=== PATIENT | male | born 1965 | race Caucasian/White ===

== ENCOUNTER 2016-07-13 12:28 | Emergency (ER) | payer OTHER ==
[2016-07-13 12:42] VITALS: BP 124/75; PULSE 71; TEMP 97.8; BMI 34.5
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
== END 2016-07-13 14:02 | disposition home or self-care (01) ==
LOC: EDMC 12:28
DX: M54.12 Radiculopathy, cervical region (principal); V49.9XXA Car occupant (driver) (passenger) injured in unspecified traffic accident, initial encounter; Y93.9 Activity, unspecified
CPT/HCPCS: 72050; 72070; 99282